=== PATIENT | male | born 1980 | race Asian ===

== ENCOUNTER 2017-03-10 15:56 | Outpatient (CLI) | payer OTHER | END 2017-03-10 16:08 | disposition short-term general hospital (02) | LOC: AMB 15:56 | DX: R06.09 Other forms of dyspnea (principal) | CPT/HCPCS: A0425; A0427 ==

== ENCOUNTER 2017-03-10 16:08 | Emergency (ER) | payer OTHER ==
[~2017-03-10] VITALS: Ht 185.4 cm; Wt 117.9 kg
[2017-03-10 16:53] LABS: PLATELET COUNT 255 K/uL (142-355)
[2017-03-10 17:09] LABS: POTASSIUM 4.5 mmol/L (3.6-5.2)
== END 2017-03-10 18:15 | disposition home or self-care (01) ==
LOC: ED 16:08
DX: T78.49XA Other allergy, initial encounter (principal); R06.4 Hyperventilation; F41.9 Anxiety disorder, unspecified
CPT/HCPCS: 80053; 85027; 96361; 96372; 96374; 96375; 99284; J0171